=== PATIENT | female | born 2000 | race Caucasian/White ===

== ENCOUNTER 2021-04-26 20:13 | Emergency (ER) | payer OTHER, SELFPAY ==
[2021-04-26 20:50] VITALS: BP 133/87; PULSE 100; RESP 18; TEMP 36.8; O2SAT 97
[2021-04-26 21:55] LABS: Basophils Absolute Auto 0.04 K/mm3 (0.00-0.10); Basophils Percent Auto 0.4 % (0.0-1.0); Eosinophils Absolute Auto 0.09 K/mm3 (0.02-0.50); Hematocrit 39.9 % (35.0-49.0); Hemoglobin 13.4 g/dL (12.0-15.0); Immature Granulocyte Absolute 0.02 K/mm3 (0.00-0.00); Immature Granulocyte Percent A 0.2 % (0.0-0.0); Lymphocytes Absolute Auto 2.62 K/mm3 (1.10-4.50); Lymphocytes Percent Auto 28.1 % (18.0-42.0); Mean Corpuscular HGB Conc 33.6 g/dL (32.0-36.0); Mean Corpuscular Hemoglobin 30.7 pg (27.0-31.0); Mean Corpuscular Volume 91.5 fL (78.0-102.0); Mean Platelet Volume 9.3 fl (9.2-11.8); Monocytes Absolute Auto 0.64 K/mm3 (0.10-0.90); Monocytes Percent Auto 6.9 % (2.0-11.0); Neutrophils Absolute Auto 5.9 K/mm3 (1.7-7.2); Neutrophils Percent Auto 63.4 % (50.0-70.0); Platelet Count Result 307 K/mm3 (150-420); Red Blood Count 4.36 M/mm3 (4.20-5.40); Red Cell Distribution Width 11.4 % (11.6-14.4); White Blood Count 9.3 K/mm3 (4.8-10.8)
[2021-04-26 21:58] LABS: Add Urine Microscopic? NO; Appearance Urine Clear (Clear); Bilirubin Urine Negative (Negative); Blood Urine Negative (Negative); Color Urine Light Yellow (Yellow); Glucose Urine UA Negative (Negative); Ketones Urine Negative (Negative); Leukocyte Esterase Ur Negative LEU/UL (Negative); Nitrate Urine Negative (Negative); Protein Urine Negative (Negative); Specific Grav Ur >= 1.030 (1.010-1.020); Urobilinogen Urine 0.2 mg/dL (0.2-1.0); pH Urine 5.5 (5.0-8.0)
[2021-04-26 22:05] LABS: Trichomonas Negative (Negative); Trichomonas Source Vaginal (Female)
[2021-04-26 22:18] LABS: Alanine Aminotransferase 21 U/L (14-59); Albumin Level 3.6 g/dL (3.4-5.0); Alkaline Phosphatase 85 U/L (46-116); Anion Gap 9 mmol/L (8-16); Aspartate Amino Transferase 10 U/L (15-37); Bilirubin,Total 0.2 mg/dL (0.00-1.00); Blood Urea Nitrogen 15 mg/dL (7-18); Calcium 9.3 mg/dL (8.5-10.1); Carbon Dioxide 27 mmol/L (21-32); Chloride 104 mmol/L (98-108); Estimated CRCL calculation 79 ml/min; Estimated Glomerular Filt Rate > 60; Glucose 100 mg/dL (70-99); Osmolality Calculated 290 mOsm/kg (285-295); Potassium 3.9 mmol/L (3.5-5.1); Sodium 140 mmol/L (136-145); Total Protein 8.4 g/dL (6.4-8.2)
[2021-04-26 22:19] LABS: Beta HCG Quantitative < 1.00 mIU/mL (0-6)
--- NOTE | 2021-04-26 22:20 | ED.ABDPAIN ---
HPI - Abdominal Pain General Chief Complaint: Abdominal Pain Stated Complaint: pain in side Source: patient Mode of arrival: ambulatory Limitations: no limitations History of Present Illness HPI narrative: Mild RLQ pain on and off today MD elicited complaint: abdominal pain Pertinent past history: other (hx of ovarian cyst) Pain Consistency: intermittent Location: RLQ Severity: mild Quality: cramping Exacerbating factors: other (walking) Associated symptoms: denies other symptoms Related Data Patient : No Home Medications Medication Instructions Recorded Confirmed citalopram 10 mg PO HS 04/26/21 04/26/21 norethindrone-e.estradiol-iron 1 tablet PO DAILY 04/26/21 04/26/21 [Blisovi 24 Fe] Allergies Allergy/AdvReac Type Severity Reaction Status Date / Time banana AdvReac Unknown Verified 04/26/21 21:04 Review of Systems Constitutional: Constitutional: Reports no additional constitutional complaints, Denies chills, Denies fatigue, Denies fever(s) and Denies weakness Eyes: Eyes: Reports no additional eye complaints ENT: Reports system reviewed and no additional complaints, except as documented Cardiovascular: Cardiovascular: Reports no additional cardiovascular complaints Respiratory: Respiratory: Reports no additional respiratory complaints Gastrointestinal: Gastrointestinal: Reports no additional gastrointestinal complaints Genitourinary: Genitourinary: Denies abnormal vaginal bleeding, Denies hematuria, Denies nocturia, Denies genital lesions, Denies dysuria, Denies pelvic pain, Denies flank pain, Denies urinary incontinence and Denies vaginal discharge Musculoskeletal: Musculoskeletal: Reports no additional musculoskeletal complaints Integumentary/Breasts: Skin/Breast: Reports system reviewed and no additional complaints, except as docu Neurologic: Reports system reviewed and no additional complaints, except as documented Psychiatric: Psychiatric: Reports no additional psychiatric complaints Endocrine: Endocrine: Reports no additional endocrine complaints Hematologic/Lymphatic: Hematologic/Lymphatic: Reports no additional hematologic/lymphatic complaints Allergic/Immunologic: Allergic/Immunologic: Reports no additional allergic/immunologic complaints [facility] Past Medical History Medical History (Updated 04/26/21 @ 22:27 by Tri Cruz MD) Ovarian cyst Urinary tract infection Social History Social History (Updated 04/26/21 @ 22:23 by Tri Cruz MD) Tobacco type: e-cigarettes/vaping Alcohol intake: never Substance use: never Living arrangements: with family Exam Const: General: no acute distress and alert Nutritional Appearance: well nourished Orientation/consciousness: patient oriented x3 HENMT: Head: normal to inspection Eyes: Conjunctivae: conjunctivae normal Pupils: Equal, round and reactive pupils present Neck: Neck: normal visual inspection Chest: Chest palpation & inspection: normal inspection of the chest Resp: Effort & Inspection: normal respiratory effort Auscultation: clear to auscultation bilaterally Cardio: Rate: regular rate Rhythm: regular rhythm GI: GI Palp: Yes Soft to palpation, No Tenderness to palpation present (GI), No Guarding due to palpation present (GI) and No Rigid due to palpation Auscultation: normal bowel sounds Other: no reproducible pain on palpation of RLQ Back/Spine/Pelvis: Back: no CVA tenderness Skin: General skin exam: normal color Rashes: no rashes Neuro: General: patient oriented x3 and moves all extremities Extrem: General: normal to inspection Psych: Appearance: grossly normal Mental Status: mental status grossly normal Thought content: Yes Normal thought content present Course Vital Signs Vital signs: Vital Signs Temperature 36.8 C 04/26/21 20:50 Pulse Rate 100 04/26/21 20:50 Respiratory Rate 18 04/26/21 20:50 Blood Pressure 133/87 04/26/21 20:50 Pulse Oximetry 97 08
[2021-04-26 22:29] VITALS: BP 133/64; PULSE 77; RESP 20; TEMP 36.9; O2SAT 98
== END 2021-04-26 22:35 | disposition home or self-care (01) ==
PROVIDERS: Emergency Provider Emergency Medicine; PCP Physician Assistant
DX: R10.31 Right lower quadrant pain (principal)
CPT/HCPCS: 36415; 80053; 81003; 84702; 85025; 87210; 87491; 87591; 99282; 99284

== ENCOUNTER 2021-08-10 21:56 | Emergency (ER) | payer OTHER, SELFPAY ==
[2021-08-10 22:10] VITALS: BP 129/78; PULSE 60; RESP 18; TEMP 37; O2SAT 98
--- NOTE | 2021-08-10 23:41 | PC.NURSE ---
Patient requested to sign out AMA and follow up with PCP
== END 2021-08-10 23:51 | disposition left against medical advice (07) ==
PROVIDERS: Emergency Provider Emergency Medicine; PCP Emergency Medicine
DX: M54.2 Cervicalgia (principal); Z53.21 Procedure and treatment not carried out due to patient leaving prior to being seen by health care provider
CPT/HCPCS: 99199

== ENCOUNTER 2023-09-05 07:58 | Emergency (ER) | payer OTHER, SELFPAY ==
[2023-09-05 07:58] VITALS: BP 124/76; PULSE 84; RESP 16; TEMP 36.7; O2SAT 97
--- NOTE | 2023-09-05 08:10 | ED.FEMALEGU ---
HPI - Female Genitourinary General Chief complaint: Urogenital-Female Stated complaint: right back and flank pain; difficulty urinating Time Seen by Provider: 09/05/23 08:10 Source: patient and family Mode of arrival: ambulatory Limitations: no limitations History of Present Illness HPI Narrative: This is a 23-year-old female that was diagnosed by her primary care with a UTI and was prescribed Macrobid and Pyridium this past Saturday, patient decided not to take her antibiotics and presents today to the emergency department and was concerned that the Macrobid that she was prescribed was causing some dizziness. Advised to send a different antibiotic but explained that to take her medication as prescribed and sensitivities were faxed and she is sensitive to the Macrobid. Otherwise there is no flank pain does have some suprapubic discomfort with palpation no fever chills no nausea vomiting. MD elicited complaint: UTI Related Data Home Medications Medication Instructions Recorded Confirmed norethindrone 1 mg-ethinyl 1 tablet PO DAILY 04/26/21 09/05/23 estradiol 20 mcg (24)-iron 75 mg (4) tablet (Blisovi 24 Fe) buspirone 5 mg tablet 5 mg PO PRN PRN Anxiety 09/05/23 09/05/23 cariprazine 1.5 mg capsule 1.5 mg PO DAILY 09/05/23 09/05/23 (Vraylar) lamotrigine 25 mg tablet,extended 25 mg PO DAILY 09/05/23 09/05/23 release 24 hr Allergies Allergy/AdvReac Type Severity Reaction Status Date / Time banana AdvReac Unknown Verified 09/05/23 08:09 Review of Systems Review of Systems: All systems reviewed & are unremarkable except as noted in HPI and below PMFSH Past Medical History Medical History Ovarian cyst Urinary tract infection Social History Social History Tobacco type: e-cigarettes/vaping Alcohol intake: never Substance use: never Living arrangements: with family Exam Const: General: healthy appearing Nutritional Appearance: well nourished Orientation/consciousness: patient oriented x3 Limitations: no limitations Resp: Effort & Inspection: normal respiratory effort Auscultation: clear to auscultation bilaterally Cardio: Rate: regular rate Rhythm: regular rhythm GI: GI Palp: Yes Soft to palpation and Yes Tenderness to palpation present (GI) Auscultation: normal bowel sounds : Other: Service pubic tenderness with palpation Back/Spine/Pelvis: Back: no CVA tenderness Skin: General skin exam: normal color Course Course Emergency Course: after discussion with patient and family advised to take medicine as prescribed by her primary. Vital Signs Vital signs: Vital Signs Temperature 36.7 C 09/05/23 07:58 Pulse Rate 84 09/05/23 07:58 Respiratory Rate 16 09/05/23 07:58 Blood Pressure 124/76 09/05/23 07:58 Pulse Oximetry 97 09/05/23 07:58 Oxygen Delivery Room Air 09/05/23 07:58 Temperature 36.7 C 09/05/23 07:58 Pulse Rate 84 09/05/23 07:58 Respiratory Rate 16 09/05/23 07:58 Blood Pressure 124/76 09/05/23 07:58 Pulse Oximetry 97 09/05/23 07:58 Oxygen Delivery Room Air 09/05/23 08:00 Critical Care Time Critical Care Time Critical Care Time: No Discharge Plan Discharge Clinical Impression: Urinary tract infection Patient Disposition: Home, Self-Care Condition: Stable Instructions: Antibiotic Form, Urinary Tract Infection in Women (ED) Additional Instructions: Advised take medicine as prescribed follow up with primary if symptoms persist or worsen. Prescriptions: No Action buspirone 5 mg tablet 5 mg PO PRN PRN (Reason: Anxiety) lamotrigine 25 mg tablet extended release 24hr 25 mg PO DAILY Vraylar 1.5 mg capsule 1.5 mg PO DAILY Blisovi 24 Fe 1 mg-20 mcg (24)/75 mg (4) tablet 1 tablet PO DAILY Follow-up/Referrals: Lynne,JOSE Scruggs [Primary Care Provider] -
== END 2023-09-05 08:25 | disposition home or self-care (01) ==
LOC: CHSED 08:19
PROVIDERS: Emergency Provider Emergency Medicine; PCP Emergency Medicine
DX: N39.0 Urinary tract infection, site not specified (principal); F17.290 Nicotine dependence, other tobacco product, uncomplicated; Z79.899 Other long term (current) drug therapy
CPT/HCPCS: 99281

== ENCOUNTER 2023-09-22 12:09 | Emergency (ER) | payer OTHER, SELFPAY ==
[2023-09-22 12:09] VITALS: BP 127/83; PULSE 68; RESP 17; TEMP 36.6; O2SAT 100
--- NOTE | 2023-09-22 12:32 | ED.GENADULT ---
HPI - General Adult General Stated complaint: dental pain Time Seen by Provider: 09/22/23 12:09 History of Present Illness HPI narrative: This is a 23-year-old female presenting with dental pain. Her pain is in the upper and lower right molars. She has not point to see a dentist later next week. She has been taking Tylenol with minimal relief. She has also been using mouthwash to help relieve her symptoms. Related Data Home Medications Medication Instructions Recorded Confirmed norethindrone 1 mg-ethinyl 1 tablet PO DAILY 04/26/21 09/22/23 estradiol 20 mcg (24)-iron 75 mg (4) tablet (Blisovi 24 Fe) buspirone 5 mg tablet 5 mg PO PRN PRN Anxiety 09/05/23 09/22/23 cariprazine 1.5 mg capsule 1.5 mg PO DAILY 09/05/23 09/22/23 (Vraylar) lamotrigine 25 mg tablet,extended 25 mg PO DAILY 09/05/23 09/22/23 release 24 hr Allergies Allergy/AdvReac Type Severity Reaction Status Date / Time banana AdvReac Unknown Verified 09/22/23 12:09 [facility] Past Medical History Medical History Ovarian cyst Urinary tract infection Social History Social History Tobacco type: e-cigarettes/vaping Alcohol intake: never Substance use: never Living arrangements: with family Exam Narrative: APPEARANCE: No apparent distress. Head: Poor dentition. Slight ulceration at the base of the bottom right molar. No evidence of abscess. EYES: EOMI, NOSE: Atraumatic NECK: Trachea midline RESPIRATORY: No increased rate of breathing CARDIOVASCULAR: RRR, ABDOMINAL: Non-distended MUSCULOSKELETAl: No obvious deformities NEURO: Alert. Moving 4/4 extremities SKIN:: Warm, dry. Normal color PSYCHIATRIC: Normal affect Medical Decision Making MDM Narrative Medical decision making narrative: -Course: 23-year-old presenting with dental pain. She was offered a dental block but has declined. Physical exam shows poor dentition and some ulceration on the gum but no evidence of drainable abscess. Patient will be discharged with pain medication antibiotics instructed follow-up with her dentist. 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 -Interventions: Toradol, Augmentin -Shared decision making / Disposition: discharged with dental follow-up -RX Motrin Tylenol Augmentin Discharge Plan Discharge Clinical Impression: Tooth ache Patient Disposition: Home, Self-Care Condition: Stable Instructions: Antibiotic Form, Toothache (ED) Additional Instructions: f/u w/ dentist Prescriptions: New ibuprofen 800 mg tablet 800 mg PO TID PRN (Reason: pain) 7 Days Qty: 21 0RF acetaminophen 500 mg tablet 1,000 mg PO TID PRN (Reason: gerry) 7 Days Qty: 42 0RF amoxicillin-pot clavulanate 875-125 mg tablet 1 tablet PO Q12H Qty: 20 0RF No Action buspirone 5 mg tablet 5 mg PO PRN PRN (Reason: Anxiety) lamotrigine 25 mg tablet extended release 24hr 25 mg PO DAILY Vraylar 1.5 mg capsule 1.5 mg PO DAILY Blisovi 24 Fe 1 mg-20 mcg (24)/75 mg (4) tablet 1 tablet PO DAILY Follow-up/Referrals: Neil,Yecenia Flanagan NP [Primary Care Provider] -
[2023-09-22] MEDS: AMOXICILLIN/CLAVULANATE K 875-125 MG TAB 1 TABLET PO (13:07)
[2023-09-22 13:26] VITALS: BP 136/69; PULSE 69; RESP 18; TEMP 36.6; O2SAT 100
== END 2023-09-22 13:26 | disposition home or self-care (01) ==
PROVIDERS: Emergency Provider Emergency Medicine; PCP Nurse Practitioner
DX: K08.89 Other specified disorders of teeth and supporting structures (principal); F17.290 Nicotine dependence, other tobacco product, uncomplicated
CPT/HCPCS: 99283; A9270

== ENCOUNTER 2024-11-07 20:52 | Emergency (ER) | payer BC, SELFPAY ==
[2024-11-07 20:52] VITALS: BP 127/63; PULSE 72; RESP 18; TEMP 36.4; O2SAT 100
--- OUTSIDE RECORDS SUMMARY | 2024-11-07 20:54 | XMS_ITS | Clinical Summary ---
Author Organization [facility] Address [facility] [place] [address] Care Team Providers Care Mechanical Pencils Assembler Name Role Phone Gabriele Fuller MD Primary Care Provider [phone] Allergies No known active allergies Medications medroxyPROGESTER one 150 MG/ML injection Inject 150 mg into the muscle every 3 (three) months. Active Active Problems Problem Noted Date Diagnosed Date Ulnar neuropathy of right upper extremity 2018 Family History Medical History Relation Comments Asthma Mother Relation Status Comments Mother Alive Social History Tobacco Use Types Packs/Day Years Used Date Smoking Tobacco: Never Smokeless Tobacco: Never Alcohol Use Standard Drinks/Week Comments No 0 (1 standard drink = 0.6 oz pur e alcohol) AUDIT-C Answer Date Recorded Frequency of Alcohol Consumption Never 04/24/2019 Average Number of Drinks Not on file 019 Frequency of Binge Drinking Not on file 04/03 Comments No Sex and Gender Information Value Date Recorded Sex Assigned at Not on file Legal Sex Female 5:[address] [employer] Gender Identity Not on file Sexual Orientation Not on file Last Filed Vital Signs Vital Sign Reading Time Taken Comments Blood Pressure 107/57 08/18/2019 9:[address] [employer] Pulse 60 08/18/2019 9:[address] [employer] Temperature 36.6 C (97.8 F) 08/18/2019 9:[address] [employer] Respiratory Rate 16 08/18/2019 9:[address] [employer] Oxygen Saturation 96% 08/18/2019 9:[address] [employer] Inhaled Oxygen Concentration - - Weight 86.2 kg (190 lb) 09/01/2019 10:[address] [employer] Height 165.1 cm (5' 5 ) 09/01/2019 10:[address] [employer] Body Mass Index 31.62 09/01/2019 10:[address] [employer] Plan of Treatment Health Maintenance Due Date Last Done Comments Cervical Cancer Screening Pap Smear (Age 21 to 29) Every 3 Years 2000 Cervical Cancer Screening 2000 Annual Physical 2003 DTaP, Tdap and Td Vaccines (6 - Tdap) 2011 06/16/2004, 06/06/2001, 2000, Additional history exists Hepatitis C 2018 Hepatitis B Vaccines (1 of 3 - 19+ 3-dose series) 2019 COVID-19 Vaccine ( - 2023- season) 2024 Influenza Adult (#1) 2024 HPV Vaccines Completed 10/29/2012, 06/02, 04/17/2012 Meningococcal Vaccine Completed 05/29/2018 Meningococcal B Vaccine Aged Out No l onger eligible based on patient's age to complete this topic Pneumococcal Vaccine: Pediatrics (0 to 5 Years) and At-Risk Patients (6 to 64 Years) Aged Out No longer eligible based on patient's age to complete this topic RSV Immunizations Under 20 Months Aged Out No longer eligible based on patient's age to complete this topic Insurance [facility] Care Teams Mechanical Pencils Assembler Relationship Specialty Start Date End Date Gabriele Fuller MD [address] [place] [address] [phone] PCP - General FAMILY PRACTICE 04/14/19
--- OUTSIDE RECORDS SUMMARY | 2024-11-07 21:10 | XMS_ITS ---
Author Organization [facility] [employer] [facility] Address [facility] [address] [facility] [address] [place] [address] Care Team Providers Care Pattern Grader Cutter Name Role Phone Eun Ruelas Unavailable [phone] REASON FOR VISIT fax note Social History Sex Assigned At : Social History Observation Description Sex Assigned At Female Encounters [facility]counter 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
--- OUTSIDE RECORDS SUMMARY | 2024-11-07 21:10 | XMS_ITS | Patient Health Record ---
Author Organization [facility] [employer] Address [facility] [facility] [address] [place] [address] Care Team Providers Care Pharmacy Resident Name Role Phone Eun Ruelas Unavailable [phone] Allergies Allergen (clinical drug ingredient) Drug/Non Drug Allergy documented on EMR Reaction Allergy Type Onset Date Status azithromycin Azithromycin Unknown Drug Allergy A ctive Reason For Referral No Information Medications Medication SIG (Take, Route, Frequency, Duration) Notes Start Date End Date Status Vraylar 3 MG Oral for 30 Days Active Amphetamine-Dextroampheta mine 5 MG Oral for 30 Days Active Amphetamine-Dextroamphet ER 10 MG Oral for 30 Days Active Amphetamine-Dextroamphet ER 10 MG TAKE 1 CAPSULE BY MOUTH EVERY MORNING Oral for 30 Days Active Aurovela FE 1/20 1-20 MG-MCG TAKE 1 TABLET BY MOUTH EVERY DAY Oral for 84 Days Not-Taking Amphetamine-Dextroamphet ER 10 MG TAKE 1 CAPSULE BY MOUTH EVERY MORNING Oral for 30 Days Not-Taking lamoTRIgine ER 100 MG Oral for 90 Days Active Amphetamine-Dextroamphet ER 10 MG Oral for 30 Days Not-Taking diazePAM 2 MG Oral for 1 Days Not-Taking diazePAM 2 MG TAKE 1 TABLET BY GIOVANNA TH ONCE Oral for 1 Days Not-Taking busPIRone HCl 10 MG 1 (ONE) TABLET THREE TIMES DAILY NEEDED Oral for 30 Days Active Ondansetron HCl 4 MG TAKE 1 TABLET BY MO UT THREE TIMES A DAY NEEDED Oral for 5 Days Active Social History Tobacco Use: Social History Observation Description Date Details (start date - stop date) Current Smoker NA - NA Sex Assigned At : Social History Observation Description Sex Assigned At Female Tobacco Control (Standard) Question Answer Notes Tobacco use: Current smoker How often do you smoke cigarettes? Every day How many cigarettes a day do you smoke? 5 or les s How soon after you wake up do you smoke your fir st cigarette? Within 5 minutes Are you interested in quitting? Not ready to loulou t AUDIT-C (Standard) Question Answer Notes Did you have a drink contain ing alcohol in the past year? Yes How often did you have six o r more drinks on one occasion in the past year? Less than monthly (1 point) How many drinks did you have on a typical day when you were drinking in the past year? 1 or 2 drinks (0 point) How often did you have a dri nk containing alcohol in the past year? Monthly or less (1 point) Problems Problem Type SNOMED Code ICD Code Onset Dates Problem Status W/U Status Risk Notes Problem Bipolar II disorder (63398936) Bipolar II disorder (F31.81) Active confirmed Problem Generalized anxiety disorder (42104088) Generalized anxiety disorder (F41.1) Active confirmed Problem Chronic insomnia (341609831) Chronic insomnia (F51.04) Active confirmed Problem Difficulty concentrating (R41.840) Active confirmed Vital Signs Heart Rate 75 /min 03/24/2024 Height-cm 162.56 cm 03/24/2024 Blood pressure diastolic 68 mm Hg 03/24/2024 Weight-kg 87.09 kg 03/24/2024 Height 64 in 03/24/2024 Blood pressure systolic 106 mm Hg 03/24/2024 Weight 192 lbs 03/24/2024 BMI 32.95 kg/m2 03/24/2024 Encounters Encounter Location Date Provider Diagnosis [facility] [employer] [address] [place] [address] [address] 03/24/2024 Eun Ruelas Bipolar II disorder F31.81 ; Generalized anxiety disorder F41.1 ; Chronic insomnia F51.04 ; Difficulty concentrating R41.840 and Marijuana use F12.90 [employer] [facility] [address] [address] 03/24/2024 Eun Ruelas Assessments Encounter Date Diagnosis (ICD Code) Assessment Notes Treatment Notes Treatment Clinical Notes Section Notes 03/24/2024 Bipolar II disorder (ICD-10 - F31.81) currently depression, though has greatly improved takes lamotrigine ER 100mg qam-take consistently, monitor for rash/SJS takes Vraylar 3mg daily cont therapy (may need to find new therapist with more availability) Dx: bipolar II disorder-current ly depressed, ELIZA, chronic insomnia, daily cannabis Diff: ADHD did not leave UDS sample -discuss dx and tx considerations, pros/cons, r/b/se of meds, risk of activation of bipolar with stimulants/antid epressants, though can be tolerated by some generally with mood stabilizing agents. -cannabis can also contribute to mood/anxiety, jackson, psychosis, attention sx. recommend decrease cannabis, not receptive. regardless policy here no controlled meds with cannabis. -could increase lamotrigine or try something else. She feels current meds seem to work fine. When referred here she was going through some stuff /break up, worse sx, and they increased medication. But has improved. They kept appt as wanted to be sure medications were appropriate, etc. recommend cont counseling, more regularly if possible discuss IOP as option in future if needed/in crisis will have staff fax copy of note to PCP they are going to stay with PCP for now and return to clinic if needed in future 03/24/2024 Generalized anxiety disorder (ICD-10 - F41.1) takes buspar 10mg TID-takes prn; seems helpful recommend ongoing, regular therapy 03/24/2024 Chronic insomnia (ICD-10 - F51.04) practice good sleep hygiene decrease afternoon caffeine consider if afternoon stimulant worsens 03/24/2024 Difficulty concentrating (ICD-10 - R41.840) recent ADHD dx and treatment with adderall ER 10mg qam and IR 5MG q afternoon per by PCP recommend decrease cannabis discuss for treatment here, would need IVAMESA testing to inform dx and would first prefer mood and anxiety to be well controlled (she reports they are much better) and ideally not be smoking cannabis. Discuss part of dx ADHD is ruling out being caused by mood d/o, anxiety, substance use, etc. Regardless, office policy is no controlled substance prescriptions with cannabis use. So if wanting to cont adderall would be with PCP. Also discuss how this could impact hypomania/jackson. in future if having manic symptoms, recommend hold stimulant 03/24/2024 Marijuana use (ICD-10 - F12.90) Recommend decrease/stop cannabis use as it can negatively impact mood, motivation, anxiety, sleep, focus/concentra tion/memory (vigilance, elasticity, processing and attention); can also contribute to development of psychosis. Cannabis/mariju robbin information: https://aaron.ni h.gov/publicati ons/drugfacts/c julia price https://www.[facility].gov/curtis price Plan Of Treatment No Information Insurance Providers Payer Name Payer Address Payer Phone Subscriber Number Group Number Insured Name Patient Relationship to Insured Coverage Start Date Coverage End Date [facility] [id number] [place] [address] [id number] Uzma Aldana Self - patient is the insured Medical (General) History Medical History History ICD Code ADHD Major Depression Insomnia Marijuana abuse Vit B12 deficiency Past Psychiatric History: An xiety Disorder,Major Depressive Episode,Bipolar Disorder abdominal aortic aneurysm: No atrial fibrillation: No chronic fatigue syndrome: No essential tremor: No hyperlipidemia: No hypertension: No Parkinson's disease: No restless leg syndrome: No stroke: No subdural hematoma: No type 1 diabetes mellitus: No type 2 diabetes mellitus: No vitamin B12 deficiency: Yes vitamin D deficiency: No Surgical History Surgery Date(Month/Year) ulnar tunnel surgery 2019 wisdom teeth removed 2019
--- OUTSIDE RECORDS SUMMARY | 2024-11-07 21:10 | XMS_ITS ---
Author Organization [facility] [employer] Address [facility] [address] [facility] [address] [place] [address] Care Team Providers Care Contracting Officer Name Role Phone Eun Ruelas Unavailable [phone] Allergies Allergen (clinical drug ingredient) Drug/Non Drug Allergy documented on EMR Reaction Allergy Type Onset Date Status azithromycin Azithromycin Unknown Drug Allergy A ctive REASON FOR VISIT new patient Medications Medication SIG (Take, Route, Frequency, Duration) Notes Start Date End Date Status Aurovela FE 09/21 1-20 MG-MCG TAKE 1 TABLET BY MOUTH EVERY DAY Oral for 84 Days Not-Taking Amphetamine-Dextroamphet ER 10 MG TAKE 1 CAPSULE BY MOUTH EVERY MORNING Oral for 30 Days Not-Taking lamoTRIgine ER 100 MG Oral for 90 Days Active Amphetamine-Dextroamphet ER 10 MG Oral for 30 Days Not-Taking diazePAM 2 MG TAKE 1 TABLET BY GIOVANNA TH ONCE Oral for 1 Days Not-Taking Vraylar 3 MG Oral for 30 Days Active Amphetamine-Dextroampheta mine 5 MG Oral for 30 Days Active diazePAM 2 MG Oral for 1 Days Not-Taking busPIRone HCl 10 MG 1 (ONE) TABLET THREE TIMES DAILY NEEDED Oral for 30 Days Active Ondansetron HCl 4 MG TAKE 1 TABLET BY MO UTH THREE TIMES A DAY NEEDED Oral for 5 Days Active Amphetamine-Dextroamphet ER 10 MG Oral for 30 Days Active Amphetamine-Dextroamphet ER 10 MG TAKE 1 CAPSULE BY MOUTH EVERY MORNING Oral for 30 Days Active Social History Tobacco Use: Social [...] Status Risk Notes Problem Bipolar II disorder (14428387) Bipolar II disorder (F31.81) Active confirmed Problem Generalized anxiety disorder (77405768) Generalized anxiety disorder (F41.1) Active confirmed Problem Chronic insomnia (396501014) Chronic insomnia (F51.04) Active confirmed Problem Difficulty concentrating (R41.840) Active confirmed Vital Signs Blood pressure systolic 106 mm Hg 03/24/20 24 Blood pressure diastolic 68 mm Hg 024 Heart Rate 75 /min 03/24/2024 Height 64 in 03/24/2024 Weight 192 lbs 03/24/2024 BMI 32.95 kg/m2 03/24/2024 Height-cm 162.56 cm 03/24/2024 Weight-kg 87.09 kg 03/24/2024 Encounters Encounter Location Date Provider Diagnosis [facility] [employer] [address] [place] [id number] 03/24/2024 Eun Ruelas Bipolar II disorder F31.81 ; Generalized anxiety disorder F41.1 ; Chronic insomnia F51.04 ; Difficulty concentrating R41.840 and Marijuana use F12.90 Assessments Encounter Date Diagnosis (ICD Code) Assessment [...] psychosis. Cannabis/mariju robbin information: https://aaron.ni h.gov/publicati ons/drugfacts/c xavier-curtis na https://www.[facility].gov/marimarcosa na Plan Of Treatment Treatment Notes Assessment Notes Bipolar II disorder currently depression, though has greatly improved takes lamotrigine ER 100mg qam-take consistently, monitor for rash/SJS takes Vraylar 3mg daily cont therapy (may need to find new therapist with more availability) Generalized anxiety disorder takes buspar 10mg TID-takes prn; seems helpful recommend ongoing, regular therapy Chronic insomnia practice good sleep hygiene decrease afternoon caffeine consider if afternoon stimulant worsens Difficulty concentrating recent ADHD dx and treatment with adderall ER 10mg qam and IR 5MG q afternoon per by PCP recommend decrease cannabis Marijuana use Recommend decrease/stop cannabis use as it can negatively impact mood, motivation, anxiety, sleep, focus/concentration/memory (vigilance, elasticity, processing and attention); can also contribute to development of psychosis. Cannabis/marijuana information: https://aaron.nih.gov/publications/drugfacts/cannabis-mar ijuana https://[facility].gov/marijuana Progress Notes * Uzma ANGULO RDOB:1999 (23 yo F)Acc No.[id number]:03/24/2024 Patient: Jose CORDERO Uzma R Provider: LEN JOVEL :2000 A ge:23 Y S ex:Female Date:03/24/2024 Phone: Address:[address] [place], [place] [id number] Subjective: * Chief Complaints: * 1 . New patient. * HPI: P ast Psychiatric Hospitalizations: Previous psychiatric hospitalizations P revious Psychiatric Hospitalization N o. P ast History of Suicidal attempt H ave you ever attempted suicide in the past N o. D epression screening: PHQ-9 L ittle interest or pleasure in doing things S everal days, F eeling down, depressed, or hopeless S everal days, T rouble falling or staying asleep, or sleeping too much N early every day, F eeling tired or having little energy Several days, P oor appetite or overeating M ore than half the days, F eeling bad about yourself or that you are a failure, or have let yourself or your family down M ore than half the days, T rouble concentrating on things, such as reading the newspaper or watching television S , M oving or speaking so slowly that other people could have noticed; or the opposite, being so fidgety or restless that you have been moving around a lot more than usual S , T houghts that you would be better off or of hurting yourself in some way S (Consider Suicide Assessment Risk), T otal Score 1 3, I nterpretation M oderate Depression. D epression Screening: ELIZA-7 (2018 Edition) F eeling nervous, anxious, or on edge?Several days, N ot being able to stop or control worrying M ore than half the days,?Worrying too much about different things M ore than hafl the days, T rouble relaxing S , B eing so restless that it is hard to sit still S , B ecoming easily annoyed or irritable M ore than half the days, F eeling afraid as if something awful might happen S , T otal ELIZA-7 Score 1 0, I f you checked any problems, how difficult have they made it for you to do your work, take care of things at home, or get along with other people? V diana difficult, I nterpretation of Total ( 10 to 14) Moderate. H istory of Presenting Problem: CC: establish as new patient; presents with mother HPI: 23 y/o female, single, here for initial evaluation related to: trying to get on track with what I actually have, because general practitioners don't do so much. Seeing PCP for bipolar, major depression, anxiety, ADHD. mother says medications are helping, but maybe there is a better combination, still has some lows. Want to make sure right meds and right doses. They just keep adding things. They've been sending her to a counseling place, that is free, which is great, but is hard to get in, though has access to peer support too. SOCIAL HX: Lives in [place] alone, no kids. Grew up local, no siblings. 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 Denies service. Denies hx of committing assault, property damage, etc., legal problems, incarceration. SUBSTANCE USE HX: Caffeine: 2 c coffee, maybe energy drink or soda in afternoon Cigarette/vape: vapes daily ETOH: very rarely, denies current or past problem use Cannabis: daily smoking, and gummies Other drug use: Denies Treatment hx: Denies MED/SURG HX: Medical: b12 deficiency-gets shots. Surgical: ulnar tunnel and wisdom teeth. Denies hx of seizure, head trauma, cardiac, kidney, or liver problems. Last labs: last month, get routinely. Contraception: in process switch from nexplanon to kyleena FAMILY PSYCHIATRIC HX: Denies. Denies family hx of attempted or completed suicide. PSYCHIATRIC HX: Dx: ADHD, MDD, insomnia, marijuana, B12, anxiety d/o, bipolar. D enies hx of psychiatric hospitalizations. Denies hx of suicide attempts. hx of self-harming via cutting in middle school, not since. D enies hx of ECT, Spravato, TMS. DEPRESSION: started childhood. present since. currently mild to none the last few weeks, before that was severe, felt down, helpless/hopeless bad about self. SI: thoughts and method of slitting throat, but no actual intent. SI off and on since childhood. No attempts. SLEEP: issues since 8th grade. fall asleep ok. wake up every hour. probably getting 4-5 hrs of sleep avg. naps on weekends. T ried melatonin, CBD, THC no help. ANXIETY: started high school. worry about everything, all the time, worst case scenario. easily irritated. Ruminates. PANIC ATTACKS: denies OBSESSIONS OR COMPULSIONS: denies JACKSON HX: lasts about a week or so. will have good self-esteem (not extreme), talking fast and louder, may sleep a little less but not tired like she is now, thinking faster, I'll start a project/hobby but don't finish. Haven't spent too much money, no cheating or risky behaviors, no negative consequences. Mother concurs. PSYCHOSIS HX: denies hx of hallucinations, delusions, paranoia ATTENTION, CONCENTRATION sx: ADHD dx a few months ago by PCP. c/o trouble focus, fidget, couldn't sit still. in school when younger, didn't pay attention, unfocused a lot, talked a lot, but still did good. procrastinate. COUNSELING HX: just the last few months, as above. TRAUMA/ABUSE HX: child: denies. Adult: denies. PSYCH MEDICATION/TREATMENT: lamotrigine ER 100mg qam x 1 yr-increased last month, amph-dext ER 10mg qam plus IR 5mg q afternoon for few months, V raylar 3mg daily x 2 yrs, Buspirone 10mg TID x 3 wks. PAST: started meds 8th grade: zoloft-made worse. fluoxetine-stopped b/c thought would be ok. one other. T ried trazodone-didn't work, melatonin, CBD, THC for sleep. Mother agrees with above and feels Uzma has been doing really well the last month a break up precipitated the down mood/SI Review new pt referral in January, from ARYAN Danielson at [facility] Dx: MDD. Patient denies suicidal plan. Reports she was having suicidal ideation. Reports that she planned to slit her throat-she saw psychiatry that day and met with crisis counselor. Consuelo has been staying on suicidal watch per psych. Denies current suicidal plan. Reports she has access to 24hour care through psych. * ROS: P sychiatric: Comments S [facility] for details. * Medical History: A DHD, Major Depression, Insomnia, Marijuana abuse, Vit B12 deficiency, Past Psychiatric History: Anxiety Disorder,Major Depressive Episode,Bipolar Disorder, abdominal aortic aneurysm: No, atrial fibrillation: No, chronic fatigue syndrome: No, essential tremor: No, hyperlipidemia: No, hypertension: No, Parkinson's disease: No, restless leg syndrome: No, stroke: No, subdural hematoma: No, type 1 diabetes mellitus: No, type 2 diabetes mellitus: No, vitamin B12 deficiency: Yes, vitamin D deficiency: No. * Surgical History: u lnar tunnel surgery 2019, wisdom teeth removed 2019. * Family History: F ather: None. M aternal Aunt: None. M aternal Uncle: None. P aternal Aunt: None.?Paternal Uncle: None. M other: None. P aternal Grandfather: None. P aternal Grandmother: None. M aternal Grandfather: None. M aternal Grandmother: None. B rother: None.?Sister: None. S on: None. D aughter: None. * Social History: T obacco Use: T obacco Control (Standard) T obacco use: C urrent smoker, H ow often do you smoke cigarettes? E very day, H ow many cigarettes a day do you smoke? 5 or less, H ow soon after you wake up do you smoke your first cigarette? W ithin 5 minutes, A re you interested in quitting? N ot ready to quit. D rug/Alcohol: D rugs H ave you used drugs other than those for medical reasons in the past 12 months??Yes, M ethamphetamine? N o, C rack? N o, L SD? N o, E cstacy? N o, P rescription opiates? N o, M arijuana? Y es, K etamine? N o, P CP? No, I s there a minor (18 years or younger) at risk at home? N o, A re you still using? Y es, D o you want treatment? N o. A GAGAN-C (Standard) D id you have a drink containing alcohol in the past year? Y es, H ow often did you have six or more drinks on one occasion in the past year? L ess than monthly (1 point), H ow many drinks did you have on a typical day when you were drinking in the past year? 1 or 2 drinks (0 point), H ow often did you have a drink containing alcohol in the past year? M onthly or less (1 point). M iscellaneous: O ccupation: [employer]. Safety issues A re there any firearms in the house? N o.? S ocial History: H ousehold M arital Status: S tracy, N umber of Adults in household: 1 , N umber of Children in Household: 0 , L evel of Education: F inished High School. * Medications: T aking lamoTRIgine ER 100 MG Tablet Extended Release 24 Hour Oral , Taking Amphetamine-Dextroamphet ER 10 MG Capsule Extended Release 24 Hour TAKE 1 CAPSULE BY MOUTH EVERY MORNING Oral , Taking Amphetamine-Dextroamphet ER 10 MG Capsule Extended Release 24 Hour Oral , Taking Vraylar 3 MG Capsule Oral , Taking Amphetamine-Dextroamphetamine 5 MG Tablet Oral , Taking busPIRone HCl 10 MG Tablet 1 (ONE) TABLET THREE TIMES DAILY NEEDED Oral , Taking Ondansetron HCl 4 MG Tablet TAKE 1 TABLET BY MOUTH THREE TIMES A DAY NEEDED Oral , Not-Taking diazePAM 2 MG Tablet Oral , Not-Taking diazePAM 2 MG Tablet TAKE 1 TABLET BY MOUTH ONCE Oral , Not-Taking Amphetamine-Dextroamphet ER 10 MG Capsule Extended Release 24 Hour TAKE 1 CAPSULE BY MOUTH EVERY MORNING Oral , Not-Taking Amphetamine-Dextroamphet ER 10 MG Capsule Extended Release 24 Hour Oral , Not-Taking Aurovela FE 09/21 1-20 MG-MCG Tablet TAKE 1 TABLET BY MOUTH EVERY DAY Oral , Discontinued Amphetamine- Dextroamphet ER 10 MG Capsule Extended Release 24 Hour Oral , Medication List reviewed and reconciled with the patient * Allergies: A zithromycin. Objective: * Vitals: B P:106/68mm Hg, HR:75/min, Wt:192lbs, Wt-k.09 kg, Ht:64in, Ht-cm: 162.56 cm, BMI:32.95Index, Body Surface Area: 1.98. * Examination: P sychiatry: Appearance: A ppearance: alert,well-groomed, clean, appears well rested. No acute physical distress. B ehavior: eye contact good,cooperative, pleasant. Abnormal body movements: n one. Affect / mood: d epressed-mild, anxious, congruent. Attention: n ormal in conversation. Attitude: c ooperative. Suicidal ideation: d enies. Memory status: n o impairment noted. Degree of awareness of surroundings: w ithin normal limits.? Delusions: n o. Hallucinations: n o. Insight: g ood. Intellectual functioning: n o impairment noted. Judgement: g ood. Orientation: a wake, alert and oriented x 3. Perceptual disorders: n o perceptual disorder noted. Psychomotor activity: w ithin normal range. Speech / language: a ppropriate pitch/modulation, clear and coherent, normal rate, volume, and articulation (RVR), proper grammar used. Thought content: a ppropriate. Thought process: i ntact. Assessment: * Assessment: 1. B ipolar II disorder - F31.81 (Primary) 2 . G eneralized anxiety disorder - F41.1 3 . C hronic insomnia - F51.04 4 . D ifficulty concentrating - R41.840 5 . M arijuana use - F12.90 Plan: * Treatment: 2. G eneralized anxiety disorder Notes: takes buspar 10mg TID-takes prn; seems helpful recommend ongoing, regular therapy 3. C hronic insomnia Notes: practice good sleep hygiene decrease afternoon caffeine consider if afternoon stimulant worsens 4. D ifficulty concentrating Notes: recent ADHD dx and treatment with adderall ER 10mg qam and IR 5MG q afternoon per by PCP recommend decrease cannabis Clinical Notes: discuss for treatment here, would need IVAMESA [...] if having manic symptoms, recommend hold stimulant 5. M arijuana use Notes: Recommend decrease/stop cannabis use as it cannegatively impact mood, motivation, anxiety, sleep, focus/concentration/memory(vigilance, elasticity, processing and attention); can also contribute todevelopment of psychosis. Cannabis/marijuana information: https://aaron.nih.gov/publications/drugfacts/ cannabis-marijuana https://www.samhsa.gov/marijuana * Labs: * L ab: Test, Urine (Order Cancelled) L ab: UDT (Order Cancelled) * Procedure Codes: 8 0305 DRUG TEST PRSMV READ DIRECT OPTICAL OBS MN DATE, Modifiers: QW , [address]20 DRUG TST PRSMV READ INSTRMNT ASSTD DIR OPT OBS, 16798 PSYCHIATRIC DIAGNOSTIC EVAL W/MEDICAL SERVICES * Billing Information: * Visit Code: * Procedure Codes: 10285 DRUG TEST PRSMV READ DIRECT OPTICAL OBS MN DATE. Modifiers: QW 98657 DRUG TST PRSMV READ INSTRMNT ASSTD DIR OPT OBS. 13217 PSYCHIATRIC DIAGNOSTIC EVAL W/MEDICAL SERVICES. * Sign off status: Completed true * Provider: LEN JOVEL Date: 0 03/24/2024 Generated for Mirna perdue/Dejan/Cholo on: 0 11/07/2024 09:10 PM FINANCE ASSISTANT History and Physical Notes * HPI (History of Present Illness) Category Sub-Category Detail Notes Category Not es Past Psychiatric Hospitalizations Previous psychiatric hospitalizations Previous Psychiatric Hospitalization: No Past History of Suicidal attempt Have yo u ever attempted suicide in the past: No Depression screening PHQ-9 Little inte rest or pleasure in doing things: Several days Feeling down, depressed, or hopeless: Se veral days Trouble falling or staying asleep, or sl eeping too much: Nearly every day Feeling tired or having little energy: S everal days Poor appetite or overeating: More than h abby the days Feeling bad about yourself o r that you are a failure, or have let yourself or your family down: More than half the days Trouble concentrating on thi ngs, such as reading the newspaper or watching television: Several days Moving or speaking so slowly that other people could have noticed; or the opposite, being so fidgety or restless that you have been moving around a lot more than usual: Several days Thoughts that you would be b kieran off or of hurting yourself in some way: Several days (Consider Suicide Assessment Risk) Total Score: 13 Interpretation: Moderate Depression Depression Screening ELIZA-7 (2018 Edition) Feelin g nervous, anxious, or on edge: Several days Not being able to stop or control worryi ng: More than half the days Worrying too much about different things : More than hafl the days Trouble relaxing: Several days Being so restless that it is hard to sit still: Several days Becoming easily annoyed or irritable: Mo re than half the days Feeling afraid as if something awful micki ht happen: Several days Total ELIZA-7 Score: 10 If you checked any problems, how difficult have they made it for you to do your work, take care of things at home, or get along with other people?: Very difficult Interpretation of Total: (10 to 14) Mode rate Examination Category Sub-Category Detail Notes Category Not es Psychiatry Appearance: Appearance: alert, well-groomed, clean, appears well rested. No acute physical distress. Behavior: eye contact good, cooperative, pleasant Attitude: cooperative Psychomotor activity: within normal rang e Abnormal body movements: none Attention: normal in conversati on Degree of awareness of surroundings: wit hin normal limits Orientation: awake, alert and chitra ented x 3 Affect / mood: depressed-mild, anxi ous, congruent Speech / language: appropriate pitch/mo dulation, clear and coherent, normal rate, volume, and articulation (RVR), proper grammar used Insight: good Judgement: good Thought process: intact Thought content: appropriate Perceptual disorders: no perceptual diso rder noted Suicidal ideation: denies Intellectual functioning: no impairment noted Memory status: no impairment noted Delusions: no Hallucinations: no
--- NOTE | 2024-11-07 21:24 | ED_ITS ---
HPI - Anxiety General Chief Complaint: Anxiety Stated Complaint: Anxiety Time Seen by Provider: 11/07/24 21:06 Source: patient and family Mode of arrival: ambulatory Limitations: no limitations History of Present Illness HPI narrative: this is a 24-year-old female with history of anxiety depression has been having increased anxiety over the past week and her current medication does not seem to be helping her. There is no chest pain no shortness of breath no fever chills no nausea vomiting no abdominal pain. complaint: anxiety Onset (ago): day(s) Severity: moderate Quality: constant Place: home History of similar episodes: Yes Provoking factors: emotional stress Related Data Home Medications ?Medication ?Instructions ?Recorded ?Confirmed ?Last Taken ?Type norethindrone 1 mg-ethinyl 1 tablet PO DAILY 04/26/21 09/22/23 Unknown History estradiol 20 mcg (24)-iron 75 mg (4) tablet (Blisovi 24 Fe) buspirone 5 mg tablet 5 mg PO PRN PRN Anxiety 09/05/23 09/22/23 Unknown History cariprazine 1.5 mg capsule 1.5 mg PO DAILY 09/05/23 09/22/23 Unknown History (Vraylar) lamotrigine 25 mg tablet,extended 25 mg PO DAILY 09/05/23 09/22/23 Unknown Histo ry release 24 hr Allergies Allergy/AdvReac Type Severity Reaction Status Date / Time banana AdvReac Unknown Verified 09/22/23 12:09 Review of Systems Review of Systems: All systems reviewed & are unremarkable except as noted in HPI and below PMFSH Past Medical History Medical History Urinary tract infection Ovarian cyst Social History Social History Tobacco type: e-cigarettes/vaping Alcohol intake: never Substance use: never Living arrangements: with family Exam Const: General: healthy appearing and no acute distress Nutritional Appearance: well nourished Orientation/consciousness: patient oriented x3 Limitations: no limitations HENMT: Head: normal to inspection Eyes: Conjunctivae: conjunctivae normal Pupils: Equal, round and reactive pupils present Neck: Neck: normal visual inspection, no lymphadenopathy and no meningeal signs Chest: Chest palpation & inspection: normal inspection of the chest Resp: Effort & Inspection: normal respiratory effort Auscultation: clear to auscultation bilaterally Cardio: Rate: regular rate Rhythm: regular rhythm GI: GI Palp: Yes Soft to palpation Auscultation: normal bowel sounds Psych: Affect: Anxious affect present Course Course Emergency Course: Patient having increased anxiety the dose of p.o. Xanax which is administered. Critical Care Time Critical Care Time Critical Care Time: No Discharge Plan Discharge Clinical Impression: Acute anxiety Patient Disposition: Home, Self-Care Condition: Stable Instructions: Antibiotic Form, Anxiety (ED) Additional Instructions: Advised to take medication as prescribed and follow-up with primary care physician as scheduled. Patient Language: Hong Konger Prescriptions: New alprazolam [Xanax] 0.5 mg tablet 0.5 mg PO BID PRN (Reason: anxiety) Qty: 10 0RF No Action buspirone 5 mg tablet 5 mg PO PRN PRN (Reason: Anxiety) lamotrigine 25 mg tablet extended release 24hr 25 mg PO DAILY Vraylar 1.5 mg capsule 1.5 mg PO DAILY ibuprofen 800 mg tablet 800 mg PO TID PRN (Reason: pain) 7 Days Qty: 21 0RF acetaminophen 500 mg tablet 1,000 mg PO TID PRN (Reason: gerry) 7 Days Qty: 42 0RF amoxicillin-pot clavulanate 875-125 mg tablet 1 tablet PO Q12H Qty: 20 0RF Blisovi 24 Fe 1 mg-20 mcg (24)/75 mg (4) tablet 1 tablet PO DAILY Follow-up/Referrals: Amarilys,ELLIE Boles [Primary Care Provider] - Time of Disposition: 21:27
[2024-11-07] MEDS: ALPRAZolam (*CRX) 0.5 MG TABLET PO (21:27)
[2024-11-07 21:55] VITALS: BP 122/74; PULSE 70; RESP 18; O2SAT 100
== END 2024-11-07 21:55 | disposition home or self-care (01) ==
PROVIDERS: Emergency Provider Emergency Medicine; PCP Registered Nurse
DX: F41.9 Anxiety disorder, unspecified (principal); F32.A Depression, unspecified
CPT/HCPCS: 99283; A9270